=== PATIENT | male | born 1965 | race Caucasian/White ===

== ENCOUNTER 2024-06-23 00:47 | Emergency (ER) | payer SELFPAY ==
[~2024-06-23] VITALS: Ht 175.3 cm; Wt 73.0 kg
[2024-06-23 00:54] VITALS: BP 158/80; PULSE 80; RESP 18; TEMP 36.9; O2SAT 99
== END 2024-06-23 02:45 | disposition left against medical advice (07) ==
LOC: ER 00:47
DX: R25.1 Tremor, unspecified (principal); R03.0 Elevated blood-pressure reading, without diagnosis of hypertension; Z00.00 Encounter for general adult medical examination without abnormal findings; Z53.21 Procedure and treatment not carried out due to patient leaving prior to being seen by health care provider
CPT/HCPCS: 99283